=== PATIENT | male | born 1960 | race Caucasian/White ===

== ENCOUNTER 2018-11-17 20:09 | Emergency (ER) | payer MEDICAID ==
[~2018-11-17] VITALS: Ht 182.9 cm; Wt 102.0 kg
[2018-11-17] MEDS ORDERED: ONDANSETRON HCL 4MG/2ML INJ IV STA (20:58)
[2018-11-17] MEDS ORDERED: ACETAMINOPHEN 325MG TABLET PO STA (20:58)
[2018-11-17] MEDS ORDERED: ASPIRIN 81MG TABLET PO ONE (21:00)
[2018-11-17 21:47] LABS: BASOPHILS % 0.1 % (0.0-2.0); EOSINOPHILS % 1.7 % (0.0-5.0); HEMATOCRIT. 36.8 % (42.0-52.0); HEMOGLOBIN. 12.5 g/dL (14.0-18.0); LYMPHOCYTES % 10.9 % (20.0-50.0); MEAN CORPUSCULAR HEMOGLOBIN 30.1 pg (28.0-32.0); MEAN CORPUSCULAR VOLUME 88.6 fL (80.0-94.0); MEAN PLATELET VOLUME 6.7 fl (7.4-10.4); NEUTROPHILS % 79.3 % (40.0-76.0); PLATELET 312 x1000/uL (130-400); RED BLOOD CELL COUNT 4.15 mill/uL (4.7-6.1); RED CELL DISTRIBUTION WIDTH 14.6 % (11.6-14.6)
[2018-11-17 21:54] LABS: CHLORIDE 99 mEq/L (98-107)
[2018-11-17 21:58] LABS: ETHANOL BLOOD < 10 mg/dL
[2018-11-17 22:37] VITALS: BP 120/70
== END 2018-11-17 22:40 | disposition home or self-care (01) ==
LOC: ER 20:09
DX: R07.9 Chest pain, unspecified (principal); I10 Essential (primary) hypertension; Z76.5 Malingerer [conscious simulation]; Z88.6 Allergy status to analgesic agent; Z87.19 Personal history of other diseases of the digestive system
CPT/HCPCS: 36415; 71045; 80320; 83880; 84484; 93005; 99284; G0480

== ENCOUNTER 2018-11-18 01:30 | Emergency (ER) | payer MEDICAID ==
[~2018-11-18] VITALS: Ht 182.9 cm; Wt 84.0 kg
[2018-11-18] MEDS ORDERED: SODIUM CHLORIDE 0.9% 1,000 ML IV ONE (03:51)
[2018-11-18] MEDS ORDERED: LORAZEPAM 2MG/ML CPJ IV STA (03:51)
[2018-11-18 04:06] LABS: BASOPHILS % 0.7 % (0.0-2.0); EOSINOPHILS % 0.6 % (0.0-5.0); HEMATOCRIT. 38.2 % (42.0-52.0); HEMOGLOBIN. 13.1 g/dL (14.0-18.0); LYMPHOCYTES % 10.3 % (20.0-50.0); MEAN CORPUSCULAR VOLUME 87.3 fL (80.0-94.0); MEAN PLATELET VOLUME 6.3 fl (7.4-10.4); MONOCYTES % 10.2 % (2.0-8.0); NEUTROPHILS % 78.2 % (40.0-76.0); PLATELET 341 x1000/uL (130-400); RED BLOOD CELL COUNT 4.37 mill/uL (4.7-6.1); RED CELL DISTRIBUTION WIDTH 14.2 % (11.6-14.6)
[2018-11-18 04:12] LABS: CHLORIDE 102 mEq/L (98-107)
[2018-11-18 04:18] LABS: ETHANOL BLOOD < 10 mg/dL
[2018-11-18] MEDS ORDERED: POTASSIUM CHLORIDE 20MEQ TABLET SR PO ONE (05:30)
[2018-11-18 11:00] VITALS: BP 121/67
== END 2018-11-18 17:21 | disposition home or self-care (01) ==
LOC: ER 01:30
DX: T43.625A Adverse effect of amphetamines, initial encounter (principal); Y92.89 Other specified places as the place of occurrence of the external cause; R45.1 Restlessness and agitation; I10 Essential (primary) hypertension; F17.200 Nicotine dependence, unspecified, uncomplicated; Z88.6 Allergy status to analgesic agent; Z98.890 Other specified postprocedural states
CPT/HCPCS: 36415; 80053; 80307; 80320; 80329; 85025; 93005; 96374; 99284; J2060; J7030; Z7610; G0480

== ENCOUNTER 2019-01-16 20:03 | Emergency (ER) | payer MEDICAID ==
[~2019-01-16] VITALS: Ht 177.8 cm; Wt 73.0 kg
[2019-01-16 20:05] VITALS: BP 140/80
== END 2019-01-16 23:41 | disposition home or self-care (01) ==
LOC: ER 20:03
DX: G89.29 Other chronic pain (principal); M54.9 Dorsalgia, unspecified; I10 Essential (primary) hypertension; Z88.6 Allergy status to analgesic agent
CPT/HCPCS: 99283

== ENCOUNTER 2019-12-07 12:07 | Emergency (ER) | payer MEDICAID ==
[~2019-12-07] VITALS: Ht 177.8 cm; Wt 72.0 kg
[2019-12-07 12:11] VITALS: BP 0/0
== END 2019-12-07 12:50 | disposition left against medical advice (07) ==
LOC: ER 12:38
DX: Z53.21 Procedure and treatment not carried out due to patient leaving prior to being seen by health care provider (principal)